=== PATIENT | male | born 1970 | race Caucasian/White ===

== ENCOUNTER 2018-07-08 09:08 | Observation (INO) | payer OTHER ==
[~2018-07-08] VITALS: Ht 162.6 cm; Wt 60.6 kg
[2018-07-08] MEDS ORDERED: TAMS-11 PO (09:59)
[2018-07-08] MEDS ORDERED: CEFAZOLIN 1,000 MG ONE ×2 (11:17→19:19)
[2018-07-08] MEDS ORDERED: DIPH,PERTUSS(ACELL),TET VAC/PF 0.5 ML IM-VACC ONE ×2 (11:17→12:00)
[2018-07-08] MEDS ORDERED: CEFAZOLIN 1,000 MG IM ONE (11:30)
[2018-07-08] MEDS ORDERED: BACITRACIN ZINC OINT 500U/GM, 0.9 GM ONE (11:35)
[2018-07-08] MEDS ORDERED: D5%-0.45% NACL 1,000 ML IV ONE (11:48)
[2018-07-08] MEDS ORDERED: ONDANSETRON 2MG/ML, 2ML IVPush PRN (12:00)
[2018-07-08] MEDS ORDERED: MORPHINE SULFATE 4 MG/ML, 1ML IVPush PRN (12:00)
[2018-07-08] MEDS ORDERED: SODIUM CHLORIDE FLUSH 10ML SYR IVF PRN (12:00)
[2018-07-08 12:19] LABS: BASOPHILS # (AUTO) 0.02 x10^3/uL (0-0.1); BASOPHILS % (AUTO) 0 % (0-1); EOSINOPHILS # (AUTO) 0.16 x10^3/uL (0-0.4); EOSINOPHILS % (AUTO) 2 % (1-7); LYMPHOCYTES # (AUTO) 1.21 x10^3/uL (1-3.4); LYMPHOCYTES % (AUTO) 18 % (22-44); MD NO; MEAN CORPUSCULAR HEMOGLOBIN 29.6 pg (27.5-34.5); MEAN CORPUSCULAR HGB CONC 34.6 g/dL (33.2-36.2); MEAN CORPUSCULAR VOLUME 85.6 fL (81-97); MEAN PLATELET VOLUME 8.6 fL (7.4-10.4); MONOCYTES # (AUTO) 0.53 x10^3/uL (0.2-0.8); MONOCYTES % (AUTO) 8 % (2-9); NEUTROPHILS # (AUTO) 4.88 x10^3/uL (1.8-6.8); NEUTROPHILS % (AUTO) 72 % (42-75); PLATELET COUNT 240 x10^3/uL (130-400); RED BLOOD COUNT 5.23 x10^6/uL (4.38-5.82); RED CELL DISTRIBUTION WIDTH 13.3 % (9.4-14.8)
[2018-07-08 16:30] VITALS: BP 121/74
[2018-07-08] MEDS ORDERED: BUPIVACAINE 0.25% ONE (17:10)
[2018-07-08] MEDS ORDERED: MIDAZOLAM 1 MG/ML, 2ML ONE (17:22)
[2018-07-08] MEDS ORDERED: FENTANYL PF 100 MCG/2ML ONE ×2 (17:22→18:38)
[2018-07-08] MEDS ORDERED: KETOROLAC 30 MG/1 ML ONE (18:18)
[2018-07-08] MEDS ORDERED: PROCHLORPERAZINE 5 MG/ML, 2ML IV PRN (19:00)
[2018-07-08] MEDS ORDERED: FENTANYL PF 100 MCG/2ML IV PRN (19:00)
[2018-07-08] MEDS ORDERED: HYDROmorphone 1 MG/ML, 1ML IV PRN (19:00)
[2018-07-08] MEDS ORDERED: OXYcodone 5 MG/5 ML ORAL.SOL UDC PO PRN (19:00)
[2018-07-08] MEDS ORDERED: DIPHENHYDRAMINE 50 MG/ML, 1ML IVPush PRN (19:00)
[2018-07-08] MEDS ORDERED: LABETALOL 5MG/ML, 20ML IV PRN (19:00)
[2018-07-08] MEDS ORDERED: hydrALAzine 20 MG/ML, 1ML IV PRN (19:00)
[2018-07-08] MEDS ORDERED: MEPERIDINE/PF 25MG/0.5ML IVPush PRN (19:00)
[2018-07-08] MEDS ORDERED: PROPOFOL 10 MG/ML, 20ML ONE (19:19)
[2018-07-08] MEDS ORDERED: SUCCINYLCHOLINE 20 MG/ML, 10ML ONE (19:19)
[2018-07-08] MEDS ORDERED: ONDANSETRON 2MG/ML, 2ML ONE (19:19)
[2018-07-08] MEDS ORDERED: NEOSTIGMINE 1 MG/ML, 10ML ONE (19:19)
[2018-07-08] MEDS ORDERED: ROCURONIUM 10MG/ML,5ML ONE (19:19)
[2018-07-08] MEDS ORDERED: DEXAMETHASONE 4 MG/ML, 1ML ONE (19:19)
[2018-07-08] MEDS ORDERED: GLYCOPYRROLATE 0.2MG/1ML, 5ML ONE (19:19)
[2018-07-08] MEDS ORDERED: OXYcodone 5 MG/5 ML ORAL.SOL UDC ONE (19:52)
[2018-07-08 20:35] VITALS: BP 135/76
[2018-07-08] MEDS ORDERED: HYDR-3240 PO (20:44)
[2018-07-08] MEDS ORDERED: CEPH-368 PO (20:46)
[2018-07-08] MEDS ORDERED: ONDANSETRON 2MG/ML, 2ML IV PRN (21:00)
[2018-07-08] MEDS ORDERED: ACETAMINOPHEN 325 MG TABLET PO PRN (21:00)
[2018-07-08] MEDS ORDERED: PROMETHAZINE 25 MG/ML, 1ML IM PRN (21:00)
[2018-07-08] MEDS ORDERED: HYDROcodone/APAP 5/325 TABLET PO PRN (21:00)
[2018-07-08] MEDS ORDERED: KETOROLAC 30 MG/1 ML IV SCH (21:00)
== END 2018-07-08 22:23 | disposition home or self-care (01) ==
LOC: ED 11:47 → EDIP 11:48 → ED 12:09 → 4NOR 16:22
PROVIDERS: ADMIT Plastic Surgery; ATTEND Plastic Surgery
DX: S62.307B Unspecified fracture of fifth metacarpal bone, left hand, initial encounter for open fracture (principal); V13.4XXA Pedal cycle driver injured in collision with car, pick-up truck or van in traffic accident, initial encounter; Y93.55 Activity, bike riding
CPT/HCPCS: 26615; 36415; 73120; 73130; 73502; 73552; 76000; 85025; 90715; 96372; 96374; 99285; C1713; G0378; J0330; J0690; J1100; J1885; J2250; J2405; J2704; J2710; J3010; J3490